=== PATIENT | male | born 1985 | race Caucasian/White ===

== ENCOUNTER 2020-12-10 16:29 | Emergency (ER) | payer OTHER, SELFPAY ==
[2020-12-10 16:49] VITALS: BP 150/99; PULSE 124; RESP 18; TEMP 37.4; O2SAT 99
--- NOTE | 2020-12-10 16:55 | ED.URI ---
HPI - URI/Sore Throat General Chief Complaint: Upper Respiratory Infection Stated Complaint: Cough,Congestion Time Seen by Provider: 12/10/20 16:55 Source: patient and RN notes reviewed Mode of arrival: ambulatory Limitations: no limitations History of Present Illness HPI Narrative: 35-year-old male presents to the [facility] with complaints of cough and congestion. Patient reports productive yellow mucus with coughing. Has taken Mucinex once today. Has not had Covid nor the Covid vaccine. Has felt feverish. MD elicited complaint: cough Related Data Home Medications Medication Instructions Recorded Confirmed duloxetine 60 mg PO DAILY 12/10/20 12/10/20 ergocalciferol (vitamin D2) 1,250 mcg PO DAILY 12/10/20 12/10/20 losartan 100 mg PO DAILY 12/10/20 12/10/20 omeprazole 40 mg PO DAILY 12/10/20 12/10/20 Allergies Allergy/AdvReac Type Severity Reaction Status Date / Time prednisone Allergy Intermediate Hives Verified 12/10/20 17:11 peanut Allergy THROAT Verified 12/10/20 17:11 [place] Review of Systems Review of Systems: All systems reviewed & are unremarkable except as noted in HPI and below Constitutional: Constitutional: Reports as per HPI, Reports chills, Reports fatigue and Reports fever(s) (Subjective) Eyes: Eyes: Reports no additional eye complaints ENT: Reports system reviewed and no additional complaints, except as documented, Reports nasal congestion and Reports sore throat Cardiovascular: Cardiovascular: Reports no additional cardiovascular complaints and Denies chest pain Respiratory: Respiratory: Reports as per HPI, Reports chest congestion and Reports cough Gastrointestinal: Gastrointestinal: Reports no additional gastrointestinal complaints, Denies abdominal pain, Denies nausea and Denies vomiting Genitourinary: Genitourinary: Reports no additional male genitourinary complaints Musculoskeletal: Musculoskeletal: Reports no additional musculoskeletal complaints Integumentary/Breasts: Skin/Breast: Reports system reviewed and no additional complaints, except as docu Neurologic: Reports system reviewed and no additional complaints, except as documented Psychiatric: Psychiatric: Reports no additional psychiatric complaints Allergic/Immunologic: Allergic/Immunologic: Reports no additional allergic/immunologic complaints [facility] Past Medical History Medical History (Updated 12/10/20 @ 17:37 by Melany Palacios) H/O gastroesophageal reflux (GERD) Hypertension Kidney stones Comments At the time of my signature, I reviewed and agree with the nursing past medical, surgical, social, and family history. There is no relevant family history pertinent to the patient complaint. Exam Const: General: healthy appearing, no acute distress and alert Nutritional Appearance: well nourished and obese Orientation/consciousness: patient oriented x3 Limitations: no limitations HENMT: Head: normal to inspection Ears: external ears normal, TM's normal bilaterally and EAC's normal Eyes: Conjunctivae: conjunctivae normal Pupils: Equal, round and reactive pupils present Neck: Neck: normal visual inspection, no lymphadenopathy and no meningeal signs Chest: Chest palpation & inspection: normal inspection of the chest Resp: Effort & Inspection: normal respiratory effort and no use of accessory muscles Auscultation: clear to auscultation bilaterally, no crackles, no rales, no rhonchi and no wheezes Cardio: Rate: regular rate Rhythm: regular rhythm Skin: General skin exam: normal color Rashes: no rashes Wounds: no wounds Neuro: General: patient oriented x3, moves all extremities, no meningeal signs and no focal motor deficits Speech: normal speech Gait exam (Neuro): Normal gait present Extrem: General: normal to inspection and no pedal edema Psych: Appearance: grossly normal and well kempt Mental Status: mental status grossly normal Affect: normal affect Attitude: cooperative Thought content: Yes Bessie
[2020-12-12 20:25] LABS: SARS-CoV-2 RNA PCR Negative
== END 2020-12-10 17:20 | disposition home or self-care (01) ==
PROVIDERS: Emergency Provider Nurse Practitioner; PCP Nurse Practitioner Family
DX: J06.9 Acute upper respiratory infection, unspecified (principal); I10 Essential (primary) hypertension; Z20.822 Contact with and (suspected) exposure to COVID-19
CPT/HCPCS: 87081; 87880; 99213; C9803; G0463; U0003; U0005

== ENCOUNTER 2021-01-25 15:40 | Emergency (ER) | payer OTHER, SELFPAY ==
--- NOTE | ~2021-01-25 | CT_ITS ---
EXAMINATION: CT cervical spine wo con DATE: 01/25/2021 17:11 INDICATION: Neck pain TECHNIQUE: Computed tomography (CT) of the cervical spine was performed without intravenous contrast. The dose-length product (DLP) was 544.90 mGy-cm. Automated exposure control and iterative reconstruc tion technique were employed. COMPARISON: None FINDINGS: There is no fracture, dislocation, or subluxation. The vertebral body heights, alignment, a nd intervertebral disc spaces are normal. The paravertebral soft tissues are unremarkable. IMPRESSION: 1. No acute osseous abnormality. Reviewed, dictated and finalized at location A.
[2021-01-25 15:52] VITALS: BP 161/114; PULSE 115; RESP 18; TEMP 37.2; O2SAT 98
[2021-01-25] MEDS: IBUPROFEN 600 MG TABLET PO (17:19)
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
== END 2021-01-25 18:09 | disposition home or self-care (01) ==
PROVIDERS: Emergency Provider General Practice; PCP Nurse Practitioner Family
DX: S16.1XXA Strain of muscle, fascia and tendon at neck level, initial encounter (principal); K21.9 Gastro-esophageal reflux disease without esophagitis; I10 Essential (primary) hypertension; Z87.442 Personal history of urinary calculi; V49.50XA Passenger injured in collision with unspecified motor vehicles in traffic accident, initial encounter
CPT/HCPCS: 72125; 99284; A9270

== ENCOUNTER 2021-04-29 10:32 | Emergency (ER) | payer OTHER, SELFPAY ==
[2021-04-29] VITALS (9 sets, daily range): BP systolic 67–149; BP diastolic 26–102; PULSE 78–154; RESP 18–24; TEMP 36.6; O2SAT 97–99
--- NOTE | ~2021-04-29 | CT_ITS ---
EXAMINATION: CT chest abdomen pelvis w con DATE: 04/29/2021 12:26 INDICATION: Generalized abdominal pain. Productive cough. TECHNIQUE: Computed tomography (CT) of the chest, abdomen, and pelvis was performed with 100 mL Omnip aque 350 intravenous contrast. Automated exposure control and iterative reconstruction technique were employed. The dose-length product was 2096.38 mGy-cm. COMPARISON: CT abdomen and pelvis 10/08/2014 FINDINGS: CHEST CT: There are patchy airspace and groundglass opacities in all lobes. No pleural effusion. The heart size is normal. No pericardial effusion. There is bilateral gynecomastia. There is mild thoracic spondylo sis. ABDOMEN/PELVIS CT: There is heterogeneous attenuation in right hepatic lobe, likely transient hepatic attenuation differ ence (CHARLES). The gallbladder, spleen, pancreas, and adrenal glands are normal. There is a 3 mm stone in right kidney. There is a 3 mm stone in left kidney. There are no dilated loops of bowel. The appen giancarlo is normal. There is a small sliding hiatal hernia. There are no pathologically enlarged lymph nod es. There is no free intraperitoneal fluid. There is mild lumbar spondylosis. IMPRESSION: 1. Diffuse lung disease, consistent with COVID-19 pneumonia. 2. Small sliding hiatal hernia. Reviewed, dictated and finalized at location A. SPACE TECHNICIAN
--- NOTE | 2021-04-29 11:05 | ECG_ITS ---
Measurements Intervals [place] Rate: 93 P: 27 MD: 160 QRS: -26 QRSD: 97 T: 2 QT: 339 QTc: 422 Interpretive Statements SINUS RHYTHM POOR R WAVE PROGRESSION, ANTERIOR LEADS BORDERLINE T WAVE ABNORMALITY- INFERIOR LEADS BORDERLINE ECG Electronically Signed On 04-29-2021 11:17:47 NURSES DIRECTOR by Hudson Denis D.O.
--- NOTE | 2021-04-29 11:09 | ED.ABDPAIN ---
HPI - Abdominal Pain General Chief Complaint: Abdominal Pain Stated Complaint: abd pain, recent covid Time Seen by Provider: 04/29/21 11:02 Source: patient and RN notes reviewed Mode of arrival: ambulatory Limitations: no limitations History of Present Illness HPI narrative: 36-year-old male with history of recent Covid and previous history of kidney stones, GERD and hypertension presents to the emergency department for evaluation of increased dizziness lightheadedness with associated nausea vomiting. Patient states he tested positive for Covid a week ago on Thursday. This was a home test. Patient states since that time he has had decreased p.o. intake with associated nausea and vomiting. Patient does report lower abdominal pain. Patient did have a vasovagal episode in the waiting room. Related Data Home Medications Medication Instructions Recorded Confirmed duloxetine 60 mg PO DAILY 12/10/20 04/29/21 ergocalciferol (vitamin D2) 1,250 mcg PO DAILY 12/10/20 04/29/21 losartan 100 mg PO DAILY 12/10/20 04/29/21 omeprazole 40 mg PO DAILY 12/10/20 04/29/21 Allergies Allergy/AdvReac Type Severity Reaction Status Date / Time prednisone Allergy Intermediate Hives Verified 12/10/20 17:11 peanut Allergy THROAT Verified 12/10/20 17:11 [facility] Review of Systems Review of Systems: CONSTITUTIONAL: Subjective fevers and chills CARDIOVASCULAR: Denies any palpitations but does have some chest pain RESPIRATORY: Does report cough and shortness of breath GASTROINTESTINAL: Lower abdominal pain with associated nausea and vomiting GENITOURINARY: Denies dysuria or hematuria. SKIN: Denies rash or itching. MUSCULOSKELETAL: Myalgia NEUROLOGIC: Denies headache, numbness, or weakness. PMFSH Past Medical History Medical History H/O gastroesophageal reflux (GERD) Hypertension Kidney stones Exam Narrative: APPEARANCE: Well appearing, no pain, no distress, well-nourished. HEAD: normocephalic, atraumatic. EYES: PERRLA/EOMI, conjunctivae clear. EARS:TMS clear with good light reflex. THROAT: Pharynx clear, no exudate. NECK: Supple. No adenopathy, no masses. RESPIRATORY: Airway patent, respirations nonlabored. Clear to auscultation bilaterally, no rales, rhonchi, wheezing. CARDIOVASCULAR: Regular rate and rhythm without murmurs rubs or gallops. ABDOMINAL: Normal bowel sounds, nondistended, generalized tenderness to palpation MUSCULOSKELETAL: Moves all extremities. Strength/ROM intact, No edema, No calf tenderness. NEURO: Alert. Cranial nerves II through XII intact. SKIN: Warm, dry. Normal Color Course Reevaluation(s) Reevaluation #1: After 2 L of IV fluids the patient states he does feel somewhat improved compared to arrival. Patient's orthostatic vital signs were still mildly positive. Patient was treated with a 3rd liter normal saline. After this patient's orthostatic vital signs were normalized and patient was asymptomatic with ambulation. Patient was updated on his labs. Date: 04/29/21 Time: 15:30 Vital Signs Vital signs: Vital Signs Temperature 97.9 F 04/29/21 10:54 Pulse Rate 154 H 04/29/21 10:54 Respiratory Rate 20 04/29/21 10:54 Blood Pressure 67/26 L 04/29/21 10:54 Pulse Oximetry 98 04/29/21 10:54 Temperature 97.9 F 04/29/21 10:54 Pulse Rate 115 H 04/29/21 16:35 Respiratory Rate 18 04/29/21 16:35 Blood Pressure 149/102 H 04/29/21 16:35 Pulse Oximetry 99 04/29/21 16:34 MDM - Abdominal Pain Lab Data Attestation: I reviewed the patient's lab results. Result diagrams: 04/29/21 11:20 04/29/21 11:20 Labs: Lab Results 04/29/21 04/29/21 Range/Units 11:20 11:20 WBC 6.8 (4.5-10.0) K/mm3 RBC 5.65 (4.6-6.20) M/mm3 Hgb 16.6 (14.0-18.0) g/dL Hct 47.4 (42.0-52.0) % MCV 83.9 (80-100) fl MCH 29.4 (26-34) pg MCHC 35.0 (32-36) g/dl RDW 12.7 (11.5-14.5) % Plt Count 185 (1
[2021-04-29] MEDS: ONDANSETRON INJ 4 MG/2 ML VIAL IV PUSH (11:20)
[2021-04-29] MEDS: SODIUM CHLORIDE 0.9% IV 1,000 ML 999 ML IV CONT ×3 (11:22→15:11)
[2021-04-29 11:47] LABS: Basophils Percent Auto 0.3 % (0.2-1.2); Hematocrit 47.4 % (42.0-52.0); Hemoglobin 16.6 g/dL (14.0-18.0); Immature Granulocyte Absolute 0.02 K/mm3 (0.00-0.031); Immature Granulocyte Percent A 0.3 % (0-0.5); Lymphocytes Absolute Auto 1.82 K/mm3 (0.9-3.2); Lymphocytes Percent Auto 26.9 % (18.3-44.2); Mean Corpuscular Hemoglobin 29.4 pg (26-34); Mean Corpuscular Volume 83.9 fl (80-100); Mean Platelet Volume 11.1 fl (7.4-10.4); Monocytes Absolute Auto 0.3 K/mm3 (0.1-0.6); Monocytes Percent Auto 4.4 % (2.6-8.5); Neutrophils Absolute Auto 4.6 K/mm3 (1.3-6.7); Neutrophils Percent Auto 68.1 % (45.5-73.1); Platelet Count Result 185 k/mm3 (150-375); Red Blood Count 5.65 M/mm3 (4.6-6.20); Red Cell Distribution Width 12.7 % (11.5-14.5); White Blood Count 6.8 K/mm3 (4.5-10.0)
[2021-04-29 12:06] LABS: Alanine Aminotransferase 85 U/L (4-50); Albumin Level 4.5 g/dL (3.5-5.1); Alkaline Phosphatase 78 U/L (38-126); Anion Gap 15 mmol/L (8-16); Aspartate Amino Transferase 64 U/L (17-59); Bilirubin,Total 0.8 mg/dL (0.2-1.3); Blood Urea Nitrogen 11 mg/dL (9-20); Calcium 8.6 mg/dL (8.4-10.2); Carbon Dioxide 21 mmol/L (22-30); Chloride 100 mmol/L (98-107); Estimated CRCL calculation 132 ml/min; Estimated Glomerular Filt Rate > 60; Glucose 135 mg/dL (65-110); Potassium 3.3 mmol/L (3.4-5.0); Sodium 136 mmol/L (137-145)
== END 2021-04-29 17:17 | disposition home or self-care (01) ==
PROVIDERS: Emergency Provider Emergency Medicine; PCP Nurse Practitioner Family
DX: U07.1 COVID-19 (principal); J12.82 Pneumonia due to coronavirus disease 2019; R53.1 Weakness; I10 Essential (primary) hypertension; K21.9 Gastro-esophageal reflux disease without esophagitis; K44.9 Diaphragmatic hernia without obstruction or gangrene; Z87.442 Personal history of urinary calculi; R94.31 Abnormal electrocardiogram [ECG] [EKG]
CPT/HCPCS: 36415; 71260; 74177; 80053; 85025; 93005; 96361; 96374; 99284; J2405; J7030; Q9967

== ENCOUNTER 2021-09-04 16:41 | Emergency (ER) | payer OTHER, SELFPAY ==
[2021-09-04 16:49] VITALS: BP 151/108; PULSE 109; RESP 16; TEMP 36.3; O2SAT 100
[2021-09-04 16:50] VITALS: BP 151/108; PULSE 109; RESP 16; TEMP 36.3; O2SAT 100
--- NOTE | 2021-09-04 17:00 | ED.URI ---
HPI - URI/Sore Throat General Chief Complaint: Upper Respiratory Infection Stated Complaint: sore throat Time Seen by Provider: 09/04/21 17:00 Source: patient and RN notes reviewed Mode of arrival: ambulatory Limitations: no limitations History of Present Illness HPI Narrative: 36 y/o male presented for c/o sore throat x2 days, slight cough and nasal congestion. Denies sob, wheezing, n/v/f/c. Denies sick contacts. Not vaccinated for covid/flu. MD elicited complaint: cough Related Data Home Medications Medication Instructions Recorded Confirmed duloxetine 60 mg capsule,delayed 60 mg PO DAILY 12/10/20 09/04/21 release ergocalciferol (vitamin D2) 1,250 1,250 mcg PO DAILY 12/10/20 09/04/21 mcg (50,000 unit) capsule losartan 100 mg tablet 100 mg PO DAILY 12/10/20 09/04/21 omeprazole 40 mg capsule,delayed 40 mg PO DAILY 12/10/20 09/04/21 release Allergies Allergy/AdvReac Type Severity Reaction Status Date / Time prednisone Allergy Intermediate Hives Verified 09/04/21 16:48 peanut Allergy THROAT Verified 09/04/21 16:48 SWELLS Review of Systems Review of Systems: CONSTITUTIONAL: Denies malaise, chills, sweats, fever EYES: Denies visual changes, redness, or discharge ENT: Denies sinus pain, otalgia CARDIOVASCULAR: Denies chest pain, palpitations, edema RESPIRATORY: Denies dyspnea GASTROINTESTINAL: Denies abdominal pain, nausea, vomiting, diarrhea SKIN: Denies rash or itching MUSCULOSKELETAL:Denies myalgia NEUROLOGIC: Denies headache [facility] Past Medical History Medical History H/O gastroesophageal reflux (GERD) Hypertension Kidney stones Exam Narrative: GENERAL: Ill-appearing, nontoxic no acute distress. HEAD: Normocephalic EYES: PERRLA, conjunctivae clear ENT: Mucous membranes moist. TM pearly coe with dull light reflex bilaterally; no tragal tenderness. Oropharynx erythematous without lesions or exudate, no drooling, no hoarseness, no trismus, uvula midline. No tripod positioning, muffled voice, soft palate or pharyngeal wall bulging NECK: Supple. No lymphadenopathy CHEST: Clear to auscultation, breath sounds equal. No wheezing, rhonchi, rales, or stridor. No respiratory distress, speaks in full sentences. HEART: Regular rate and rhythm. No murmur heard. SKIN: Warm, dry, no rash. NEURO: Alert and oriented x3. PSYCH: Normal mood and affect Course Course Emergency Course: Patient is aware of diagnosis, understands and agrees to treatment plan. Anticipatory guidance given. Patient agrees to follow-up as directed and is aware of reasons to seek care at the emergency department. Portions of this record may have been created with voice recognition software Level of Care: Express Care Visit Vital Signs Vital signs: Vital Signs Temperature 97.4 F L 09/04/21 16:49 Pulse Rate 109 H 09/04/21 16:49 Respiratory Rate 16 09/04/21 16:49 Blood Pressure 151/108 H 09/04/21 16:49 Pulse Oximetry 100 09/04/21 16:49 Oxygen Delivery Room Air 09/04/21 16:49 Temperature 97.4 F L 09/04/21 16:50 Pulse Rate 109 H 09/04/21 16:50 Respiratory Rate 16 09/04/21 16:50 Blood Pressure 151/108 H 09/04/21 16:50 Pulse Oximetry 100 09/04/21 16:50 Oxygen Delivery Room Air 09/04/21 16:50 reviewed MDM - URI/Sore Throat MDM Narrative Medical decision making narrative: strep and covid neg. Advise supportive treatment. Differential Diagnosis Differential diagnosis: Likely upper respiratory infection, sinusitis, viral infection and pharyngitis Lab Data Labs: Strep Screen Presumptive Negative *(Reference Range: Negative)* Discharge Plan Discharge Clinical Impression: Pharyngitis Qualifiers: Pharyngitis/tonsillitis etiology: unspecified etiology Qualified Code(s): J02.9 - Acute pharyngitis, unspecified Patient Disposition: Home, Self-Care Condition: Sta
== END 2021-09-04 17:27 | disposition home or self-care (01) ==
PROVIDERS: Emergency Provider Nurse Practitioner Family; PCP Nurse Practitioner Family
DX: J02.9 Acute pharyngitis, unspecified (principal); Z20.822 Contact with and (suspected) exposure to COVID-19; K21.9 Gastro-esophageal reflux disease without esophagitis; I10 Essential (primary) hypertension
CPT/HCPCS: 87081; 87426; 87880; 99213; C9803; G0463

== ENCOUNTER 2023-03-16 17:34 | Emergency (ER) | payer OTHER, SELFPAY ==
--- NOTE | ~2023-03-16 | XR_ITS ---
EXAMINATION: XR abdomen/kub 1V DATE: 03/16/2023 18:51 INDICATION: Gross hematuria with left-sided abdominal pain TECHNIQUE: A supine view of the abdomen on 2 radiographs was obtained. COMPARISON: CT dated 04/29/2021 and KUB dated 02/18/2013 FINDINGS: 6 mm stone projecting over the lower pole of the right kidney. There are couple phleboliths in the pe lvis. No other calcific densities identified in the abdomen or pelvis. No dilated loops of gas-filled bowel to suggest obstruction. Mild lumbar levocurvature. IMPRESSION: 1. 6 mm right renal stone. No evident left-sided urolithiasis. Reviewed, dictated and finalized at location A. GIOUS EDUCATION DIRECTOR
--- NOTE | 2023-03-16 17:40 | ED.MALEGU ---
HPI - Male Genitourinary General Chief complaint: Urogenital-Male Stated complaint: urinary issue Time Seen by Provider: 03/16/23 18:49 Source: patient and RN notes reviewed Mode of arrival: ambulatory Limitations: no limitations History of Present Illness HPI Narrative: 38-year-old male presents with concern for left flank pain, hematuria. He reports symptoms started today. He reports history of kidney stones with similar symptoms. He reports urine frequency as well. Denies dysuria. He denies vomiting. MD Complaint: other (Hematuria) Related Data Home Medications Medication Instructions Recorded Confirmed duloxetine 60 mg capsule,delayed 60 mg PO DAILY 12/10/20 03/16/23 release ergocalciferol (vitamin D2) 1,250 1,250 mcg PO DAILY 12/10/20 03/16/23 mcg (50,000 unit) capsule losartan 100 mg tablet 100 mg PO DAILY 12/10/20 03/16/23 omeprazole 40 mg capsule,delayed 40 mg PO DAILY 12/10/20 03/16/23 release Allergies Allergy/AdvReac Type Severity Reaction Status Date / Time prednisone Allergy Intermediate Hives Verified 03/16/23 18:02 peanut Allergy THROAT Verified 03/16/23 18:02 SWELLS Review of Systems Review of Systems: CONSTITUTIONAL: Denies malaise, chills, sweats, or fever. CARDIOVASCULAR: Denies chest pain, palpitations, or edema. RESPIRATORY: Denies cough or dyspnea. GASTROINTESTINAL: Denies abdominal pain, nausea, vomiting, diarrhea GENITOURINARY: Denies dysuria, urgency, suprapubic pressure. Reports urine frequency, left flank pain, hematuria. SKIN: Denies rash or itching. MUSCULOSKELETAL: Denies back pain or myalgia. All systems reviewed & are unremarkable except as noted in HPI and below PMFSH Past Medical History Medical History H/O gastroesophageal reflux (GERD) Hypertension Kidney stones Comments At time of signature, agree with nursing past medical, surgical, social and family history. There is no relevant family history pertinent to the presenting complaint Exam Narrative: GENERAL: Well-appearing, well-nourished, and in no acute distress. HEAD: Normocephalic. EYES: PERRLA, conjunctivae clear. NECK: Supple. No lymphadenopathy CHEST: Clear to auscultation. No respiratory distress. HEART: Regular rate and rhythm. ABDOMEN: Soft, nontender upon palpation, nondistended, normal active bowel sounds, no palpable or pulsatile masses, no guarding. No CVA tenderness SKIN: Warm, dry, no rash. NEURO: Alert and oriented x3. PSYCH: Normal mood and affect Course Course Emergency Course: Based on patient's symptoms and exam reports relatively treated for a kidney stone and give referral to Urology Patient is aware of, understands and agrees to treatment plan. Anticipatory guidance given. Patient agrees to follow-up as directed and is aware of reasons to seek care at the emergency department. Portions of this record may have been created with voice recognition software Level of Care: Express Care Visit Vital Signs Vital signs: Vital Signs Temperature 99.8 F H 03/16/23 17:59 Pulse Rate 90 03/16/23 17:59 Respiratory Rate 16 03/16/23 17:59 Blood Pressure 167/108 H 03/16/23 17:59 Pulse Oximetry 99 03/16/23 17:59 Oxygen Delivery Room Air 03/16/23 17:59 Temperature 99.8 F H 03/16/23 17:59 Pulse Rate 90 03/16/23 17:59 Respiratory Rate 16 03/16/23 17:59 Blood Pressure 167/108 H 03/16/23 17:59 Pulse Oximetry 99 03/16/23 17:59 Oxygen Delivery Room Air 03/16/23 17:59 Reviewed. MDM - Male Genitourinary MDM Narrative Medical decision making narrative: Exam findings and imaging show no acute concerns or changes; patient is non-toxic appearing and is in no distress. Patient is appropriate for outpatient treatment and follow-up. Lab Data Labs: Urine Glucose Negative Reference Range: Negative Urine Bilirubin
[2023-03-16 17:59] VITALS: BP 167/108; PULSE 90; RESP 16; TEMP 37.7; O2SAT 99
== END 2023-03-16 19:15 | disposition home or self-care (01) ==
PROVIDERS: Emergency Provider Nurse Practitioner; PCP Nurse Practitioner Family
DX: R31.9 Hematuria, unspecified (principal); R10.9 Unspecified abdominal pain; K21.9 Gastro-esophageal reflux disease without esophagitis; I10 Essential (primary) hypertension
CPT/HCPCS: 74018; 81003; 99213; G0463

== ENCOUNTER 2023-03-28 11:50 | Emergency (ER) | payer OTHER, SELFPAY ==
--- NOTE | ~2023-03-28 | CT_ITS ---
EXAMINATION: CT abdomen pelvis wo con DATE: 03/28/2023 16:10 INDICATION: Material. Dysuria. Kidney stones. TECHNIQUE: Computed tomography (CT) of the abdomen and pelvis was performed without intravenous contr ast. The dose-length product was 1757.87 mGy-cm. Automated exposure control and iterative reconstruct ion technique were employed. COMPARISON: CT dated 04/29/2021. FINDINGS: There is dependent atelectasis. Heart size normal. No significant pleural or pericardial ef fusion. There is a 5 mm distal right ureteral stone near the UVJ. There is a second 5 mm stone at the right UVJ. Mild right perinephric edema. Fatty infiltration of the liver. The spleen, pancreas, adrenal glands and left kidney are unremarkabl e. Gallbladder is present. Nonobstructive bowel gas pattern. Normal appendix. Colonic diverticulosis without evidence for diverticulitis. No significant vascular abnormality. No lymphadenopathy. Small fat-containing umbilical hernia. No ac mckenzie osseous abnormality. No free air or free fluid. IMPRESSION: 1. Distal right ureteral stones, including a UVJ stone, measuring up to 5 mm. Mild right hydrouretero nephrosis. Reviewed, dictated and finalized at location [facility] IMPRESSION: 1. Distal right ureteral stones, including a UVJ stone, measuring up to 5 mm. M ild right hydroureteronephrosis.
[2023-03-28 11:57] VITALS: BP 185/118; PULSE 118; RESP 20; TEMP 36.6; O2SAT 100
[2023-03-28 12:22] LABS: Basophils Absolute Auto 0.1 K/mm3 (0.0-0.1); Basophils Percent Auto 0.9 % (0.2-1.2); Eosinophils Percent Auto 0.2 % (0-4.4); Hematocrit 47.1 % (42.0-52.0); Hemoglobin 15.7 g/dL (14.0-18.0); Immature Granulocyte Absolute 0.02 K/mm3 (0.00-0.031); Immature Granulocyte Percent A 0.2 % (0-0.5); Lymphocytes Absolute Auto 2.13 K/mm3 (0.9-3.2); Lymphocytes Percent Auto 23.3 % (18.3-44.2); Mean Corpuscular HGB Conc 33.3 g/dl (32-36); Mean Corpuscular Hemoglobin 28.9 pg (26-34); Mean Corpuscular Volume 86.6 fl (80-100); Mean Platelet Volume 10.5 fl (7.4-10.4); Monocytes Absolute Auto 0.4 K/mm3 (0.1-0.6); Monocytes Percent Auto 3.8 % (2.6-8.5); Neutrophils Absolute Auto 6.5 K/mm3 (1.3-6.7); Neutrophils Percent Auto 71.6 % (45.5-73.1); Platelet Count Result 293 k/mm3 (150-375); Red Blood Count 5.44 M/mm3 (4.6-6.20); Red Cell Distribution Width 12.2 % (11.5-14.5); White Blood Count 9.1 K/mm3 (4.5-10.0)
[2023-03-28 12:42] LABS: Alanine Aminotransferase 38 U/L (6-50); Albumin Level 4.5 g/dL (3.5-5.1); Alkaline Phosphatase 106 U/L (38-126); Anion Gap 11 mmol/L (8-16); Aspartate Amino Transferase 30 U/L (17-59); Bilirubin,Total 0.9 mg/dL (0.2-1.3); Blood Urea Nitrogen 16 mg/dL (9-20); Calcium 9.2 mg/dL (8.4-10.2); Carbon Dioxide 25 mmol/L (22-30); Chloride 103 mmol/L (98-107); Estimated CRCL calculation 123 ml/min; Estimated Glomerular Filt Rate > 60; Glucose 128 mg/dL (65-110); Potassium 3.7 mmol/L (3.4-5.0); Sodium 139 mmol/L (137-145)
[2023-03-28] MEDS: SODIUM CHLORIDE 0.9% IV 1,000 ML 999 ML IV CONT ×2 (15:50→17:29)
[2023-03-28] MEDS: HYDROmorphone HCL INJ (*CRX) 1 MG/ML SYR IV PUSH (15:58)
[2023-03-28] MEDS: ONDANSETRON INJ 4 MG/2 ML VIAL IV PUSH (15:58)
--- NOTE | 2023-03-28 16:04 | ED.GENADULT ---
HPI - General Adult General Chief complaint: Abdominal Pain Stated complaint: right flank pain Time Seen by Provider: 03/28/23 14:16 Source: patient, RN notes reviewed and old records reviewed Mode of arrival: ambulatory Limitations: no limitations History of Present Illness HPI narrative: This is a 38 year old male with history of kidney stones who presents for evaluation of hematuria and groin pain. He states he developed pain and hematuria 10 days ago. He was assessed at [facility] 1 days ago. He states he had Xray done that showed a kidney stone. He was discharged with flomax and hydrocodone. He has continued to have symptoms. He states his pain is 10/10 and it is located in his penis. He denies vomiting, fever, diarrhea, abdominal pain or back pain. Related Data Home Medications Medication Instructions Recorded Confirmed duloxetine 60 mg capsule,delayed 60 mg PO DAILY 12/10/20 03/16/23 release ergocalciferol (vitamin D2) 1,250 1,250 mcg PO DAILY 12/10/20 03/16/23 mcg (50,000 unit) capsule losartan 100 mg tablet 100 mg PO DAILY 12/10/20 03/16/23 omeprazole 40 mg capsule,delayed 40 mg PO DAILY 12/10/20 03/16/23 release Allergies Allergy/AdvReac Type Severity Reaction Status Date / Time prednisone Allergy Intermediate Hives Verified 03/28/23 11:51 peanut Allergy THROAT Verified 03/28/23 11:51 SWELLS Review of Systems Review of Systems: All systems reviewed & are unremarkable except as noted in HPI and below PMFSH Past Medical History Medical History H/O gastroesophageal reflux (GERD) Hypertension Kidney stones Social History Social History (Updated 03/28/23 @ 16:20 by Mimi Brady MD) Smoking status: Never smoker Alcohol intake: current Exam Const: General: no acute distress and alert Nutritional Appearance: well nourished Orientation/consciousness: patient oriented x3 HENMT: Head: normal to inspection Eyes: EOM: EOMs intact bilaterally Chest: Chest palpation & inspection: normal inspection of the chest Resp: Effort & Inspection: normal respiratory effort Auscultation: clear to auscultation bilaterally Cardio: Rate: regular rate Rhythm: regular rhythm Heart sounds: no murmurs GI: GI Palp: Yes Soft to palpation, No Tenderness to palpation present (GI), No Guarding due to palpation present (GI) and No Rigid due to palpation Auscultation: normal bowel sounds : Penis: Yes uncircumcised Scrotum: scrotum normal Testes: Testes normal Skin: General skin exam: normal color Rashes: no rashes Wounds: no wounds Neuro: General: patient oriented x3, moves all extremities and CN's II-XI intact bilaterally Extrem: General: normal to inspection Psych: Mental Status: mental status grossly normal Affect: normal affect Attitude: cooperative Course Reevaluation(s) Reevaluation #1: PAtient states pain has resolved. I Discussed with patient that he was found to have =UTI so he has received rocephin. He has prescription of flomax at home. I discussed return precautions. He states he understands and he is comfortable with discharge. Date: 03/28/23 Time: 18:12 Vital Signs Vital signs: Vital Signs Temperature 97.8 F 03/28/23 11:57 Pulse Rate 118 H 03/28/23 11:57 Respiratory Rate 20 03/28/23 11:57 Blood Pressure 185/118 H 03/28/23 11:57 Pulse Oximetry 100 03/28/23 11:57 Oxygen Delivery Room Air 03/28/23 11:57 Temperature 97.8 F 03/28/23 11:57 Pulse Rate 91 03/28/23 17:46 Respiratory Rate 20 03/28/23 17:46 Blood Pressure 146/94 H 03/28/23 17:46 Pulse Oximetry 99 03/28/23 17:46 Oxygen Delivery Room Air 03/28/23 11:57 Medical Decision Making [facility] Narrative Medical decision making narrative: labs, CT abdomen and pelvis ordered. no fever, no elevated wbc. 2 liters IV fluids ordered. UA + so given 2 g Rocephin due to weight. PAtient pain resolved a
[2023-03-28 17:18] LABS: Bacteria Urine None Seen /hpf; Need Manual Microscopic Reviewed; Non Pathogenic Casts 0-2; RBC Urine >100 /hpf (0-2); Squamous Epithelial Cell Urine Few /hpf (Few); WBC Urine 0-5 /hpf
[2023-03-28 17:23] LABS: Appearance Urine Slightly Cloudy (Clear); Color Urine Orange (Yellow)
[2023-03-28 17:25] LABS: Glucose Urine UA Trace mg/dL (Negative); Protein Urine 3+ mg/dL (Negative); Specific Grav Ur 1.025 (1.001-1.035)
[2023-03-28 17:26] LABS: Bilirubin Urine 2+ (Negative); Blood Urine 3+ (Negative); Ketones Urine 1+ mg/dL (Negative); Nitrate Urine Positive (Negative)
[2023-03-28 17:27] LABS: Leukocyte Esterase Ur 3+ LEU/UL (Negative)
[2023-03-28 17:30] LABS: Add Urine Microscopic? YES
[2023-03-28] MEDS: KETOROLAC 30 MG/ML VIAL (*BKC) IV PUSH (17:30)
[2023-03-28] MEDS: cefTRIAXone 2 GM/NS 100 ML 2 GM/100 ML BAG IVPB (17:43)
[2023-03-28 17:46] VITALS: BP 146/94; PULSE 91; RESP 20; O2SAT 99
== END 2023-03-28 18:35 | disposition home or self-care (01) ==
PROVIDERS: Emergency Provider General Practice; PCP Nurse Practitioner Family
DX: N20.1 Calculus of ureter (principal); N39.0 Urinary tract infection, site not specified; I10 Essential (primary) hypertension; Z87.442 Personal history of urinary calculi; K21.9 Gastro-esophageal reflux disease without esophagitis
CPT/HCPCS: 36415; 74176; 80053; 81001; 85025; 87086; 96361; 96365; 96375; 99284; J0696; J1170; J1885; J2405; J7030

== ENCOUNTER 2023-07-23 12:57 | Emergency (ER) | payer OTHER, SELFPAY ==
[2023-07-23 13:12] VITALS: BP 156/107; PULSE 98; RESP 20; TEMP 36.7; O2SAT 100
--- NOTE | 2023-07-23 13:57 | ED.URI ---
HPI - URI/Sore Throat General Chief Complaint: Upper Respiratory Infection Stated Complaint: Sinus Time Seen by Provider: 07/23/23 13:57 Source: patient, RN notes reviewed and old records reviewed Mode of arrival: ambulatory Limitations: no limitations History of Present Illness HPI Narrative: 38-year-old male presents to the [facility] with complaints of stuffy nose, runny nose, a cough with mucus for approximately 1 week. Denies any fevers, chest pain, abdominal pain. No treatment prior to arrival Onset (ago): week(s) (1) Treatments prior to arrival: none Related Data Home Medications Medication Instructions Recorded Confirmed duloxetine 60 mg capsule,delayed 60 mg PO DAILY 12/10/20 07/23/23 release ergocalciferol (vitamin D2) 1,250 1,250 mcg PO DAILY 12/10/20 07/23/23 mcg (50,000 unit) capsule losartan 100 mg tablet 100 mg PO DAILY 12/10/20 07/23/23 omeprazole 40 mg capsule,delayed 40 mg PO DAILY 12/10/20 07/23/23 release Allergies Allergy/AdvReac Type Severity Reaction Status Date / Time prednisone Allergy Intermediate Hives Verified 07/23/23 13:18 peanut Allergy THROAT Verified 07/23/23 13:18 [place] Review of Systems Review of Systems: All systems reviewed & are unremarkable except as noted in HPI and below Constitutional: Constitutional: Reports no additional constitutional complaints Eyes: Eyes: Reports no additional eye complaints ENT: Reports as per HPI, Reports nasal congestion, Reports nasal discharge and Denies sore throat Cardiovascular: Cardiovascular: Reports no additional cardiovascular complaints, Denies chest pain and Denies dyspnea Respiratory: Respiratory: Reports as per HPI, Denies chest congestion, Reports cough and Denies dyspnea Gastrointestinal: Gastrointestinal: Reports no additional gastrointestinal complaints, Denies abdominal pain, Denies nausea and Denies vomiting Musculoskeletal: Musculoskeletal: Reports no additional musculoskeletal complaints Integumentary/Breasts: Skin/Breast: Reports system reviewed and no additional complaints, except as docu Neurologic: Reports system reviewed and no additional complaints, except as documented Psychiatric: Psychiatric: Reports no additional psychiatric complaints Allergic/Immunologic: Allergic/Immunologic: Reports no additional allergic/immunologic complaints PMFSH Past Medical History Medical History H/O gastroesophageal reflux (GERD) Hypertension Kidney stones Social History Social History Smoking status: Never smoker Alcohol intake: current Comments At the time of my signature, I reviewed and agree with the nursing past medical, surgical, social, and family history. There is no relevant family history pertinent to the patient complaint. Exam Const: General: cooperative, healthy appearing, comfortable, no acute distress, well developed, alert and well nourished Nutritional Appearance: well nourished and obese Orientation/consciousness: patient oriented x3 Limitations: no limitations HENMT: Head: normal to inspection Ears: hearing grossly normal bilaterally, external ears normal, TM's normal bilaterally, EAC's normal, mastoids normal and no periauricular adenopathy Face/Nose/Sinus: Normal external nose present, Normal nares present, Normal nasal mucous membranes and turbinates present, Nasal discharge present clear bilateral, normal facial exam and face symmetric Face and sinus: normal facial exam and face symmetric Mouth: Yes Normal oral and palatal mucosa present, Yes lip normal and Yes moist mucous membranes Throat: posterior oropharynx normal, tonsils normal, uvula midline, postnasal drainage and no uvular edema Eyes: General: appearance normal, both eyes and all related structures Alignment and Position: alignment normal Periorbital: periorbital findings normal Pupils: Equal, round and reactive
== END 2023-07-23 14:12 | disposition home or self-care (01) ==
PROVIDERS: Emergency Provider Nurse Practitioner; PCP Internal Medicine
DX: R09.82 Postnasal drip (principal); J06.9 Acute upper respiratory infection, unspecified; K21.9 Gastro-esophageal reflux disease without esophagitis; I10 Essential (primary) hypertension
CPT/HCPCS: 99211; G0463